=== PATIENT | male | born 1980 | race Caucasian/White ===

== ENCOUNTER 2016-12-14 06:10 | Emergency (ER) | payer OTHER, BC ==
--- NOTE | 2016-12-14 07:02 | EDM.PDOC ---
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 He states that on or about this past , 12/10/2016, he noticed redness and swelling and burning sensation to his left elbow. Since then, his entire left forearm has become swollen and erythematous, with a burning sensation. He is concerned that he has MRSA cellulitis, because his father, who also worked on an oil rig, had a MRSA infection following a burn injury. The patient has not been on any antibiotics, and has not been hospitalized or visited a intermediate recently. The patient himself has not previously had a MRSA infection. The patient's primary care physician is in [place]. Left Elbow Pain Score (Numeric/FACES): 10 - Related Data Home Meds: Home Meds Acetaminophen [Tylenol Extra Strength] 1,000 mg PO Q4H PRN 12/14/16 [History] Cephalexin [Keflex] 500 mg PO Q6HR #40 cap 12/14/16 [Rx] Past Medical History - Past Surgical History HEENT Surgical History: Reports: Tonsillectomy Social & Family History - Tobacco Use Smoking Status *Q: Former Smoker Years of Tobacco use: 10 Packs/Tins Daily: 0.3 - Alcohol Use Alcohol Use History: Yes Alcohol Use Frequency: Socially - Recreational Drug Use Recreational Drug Use: No - Living Situation & Occupation Living situation: Reports: , with Spouse, with Family (Daughter) Occupation: Employed ([employer]) ED ROS GENERAL - Review of Systems Review Of Systems: See Below Constitutional: Reports: No Symptoms HEENT: Reports: No Symptoms Respiratory: Reports: No Symptoms Cardiovascular: Reports: No Symptoms Endocrine: Reports: No Symptoms GI/Abdominal: Reports: No Symptoms : Reports: No Symptoms Musculoskeletal: Reports: No Symptoms Skin: Reports: No Symptoms Neurological: Reports: No Symptoms Psychiatric: Reports: No Symptoms Hematologic/Lymphatic: Reports: No Symptoms Immunologic: Reports: No Symptoms ED EXAM, SKIN/RASH Exam: See Below Exam Limited By: No Limitations General Appearance: Alert, WD/WN, No Apparent Distress Extremities: Other (Moderate swelling of the entire left forearm with increased erythema. No area of purulence or pointing.) Course - Vital Signs Last Recorded V/S: Last Vital Signs Temp 97.8 F 12/14/16 06:19 Pulse 71 12/14/16 06:19 Resp 18 12/14/16 06:19 BP 171/116 H 12/14/16 06:19 Pulse Ox 99 12/14/16 06:19 - Orders/Labs/Meds Labs: Laboratory Tests 12/14/16 Range/Units 06:43 MRSA (PCR) Negative Meds: Medications Discontinued Medications Generic Name Dose Route Start Last Admin Trade Name Marysol PRN Reason Stop Dose Admin Ibuprofen 600 mg 12/14/16 07:04 12/14/16 07:12 Motrin PO 12/14/16 07:05 600 mg ONETIME ONE Administration - Re-Assessments/Exams Free Text/Narrative Re-Assessment/Exam: 12/14/16 06:56 The underlying causes of MRSA vs. MSSA colonization was discussed with the patient. I do not see that the patient is at increased risk for MRSA colonization, however I understand the patient's concern. I have obtained a nasal swab for MRSA screening by PCR, which should be back around 08:30. He will then choose an antibiotic based on the MRSA screening results. I have ordered a breakfast tray for the patient. 12/14/16 07:05 Notified by the patient's nurse that the patient is asking for pain medication. I explained to the patient that we can give ibuprofen, but that opioids are not an option. The patient became angry. He does not understand why we are asking about a pain scale if we are not going to treat a "10" with an opioid. While the patient's arm appears to be uncomfortable, I don't believe the patient 's pain is a 10 of 10, and I don't believe that this condition requires an opioid. I have ordered an ice pack and ibuprofen. 12/14/16 07:[address] Cummins, and care of the patient turned over to him at this time for change of shift. Departure - Departure Disposition: Home, Self-Care 01 Clinical Impression: Cellulitis Qualifiers: Site of cellulitis: extremity Site of cellulitis of extremity: upper extremity Laterality: left Qualified Code(s): L03.114 - Cellulitis of left upper limb - Discharge Information Prescriptions: Cephalexin [Keflex] 500 mg PO Q6HR #40 cap Referrals: Sheree Martínez [Physician] - 1 Week (If not better) Forms: ED Department Discharge Additional Instructions: Take the keflex 4 times per day for 10 days. Put warm compresses on your arm 2 to 3 times per day for a few days. Please return if you are worse of follow up with Dr Martínez. <Samuel Cummins - Last Filed: 12/14/16 08:41> Course - Re-Assessments/Exams Free Text/Narrative Re-Assessment/Exam: 12/14/16 08:[address] Xiao. The MRSA screen is negative. I will get him on some keflex. Departure - Departure Time of Disposition: 08:40 Condition: good
[2016-12-14] MEDS ORDERED: Ibuprofen 600 MG Tab PO ONE (07:04)
[2016-12-14 09:01] VITALS: BP 147/105
== END 2016-12-14 09:02 | disposition home or self-care (01) ==
LOC: JD.ED 06:10
DX: L03.114 Cellulitis of left upper limb (principal); Z87.891 Personal history of nicotine dependence
CPT/HCPCS: 87641; 99283; A9270

== ENCOUNTER 2023-06-21 10:19 | Emergency (ER) | payer BC, OTHER ==
[2023-06-21] MEDS ORDERED: Sodium Chloride 0.9% 10 ML Syringe FLUSH PRN ×2 (10:36→10:41)
[2023-06-21] MEDS ORDERED: Iopamidol 612 MG/ML 30 ML SDV IVPUSH ONE (10:41)
[2023-06-21] MEDS ORDERED: Iopamidol 612 MG/ML 100 ML Bottle IVPUSH ONE (10:41)
[2023-06-21] MEDS ORDERED: Ketorolac 60 MG/2 ML SDV IM ONE (13:00)
[2023-06-21 13:28] VITALS: BP 157/108; PULSE 61
== END 2023-06-21 13:15 | disposition home or self-care (01) ==
LOC: JD.ED 10:19
DX: S01.112A Laceration without foreign body of left eyelid and periocular area, initial encounter (principal); I10 Essential (primary) hypertension; E11.9 Type 2 diabetes mellitus without complications; Z79.899 Other long term (current) drug therapy; W26.8XXA Contact with other sharp object(s), not elsewhere classified, initial encounter
CPT/HCPCS: 70486; 96372; 99284; J1885